=== PATIENT | male | born 1935 | race Caucasian/White ===

== ENCOUNTER 2021-02-11 12:26 | Emergency (ER) | payer OTHER, BC ==
[~2021-02-11] VITALS: Ht 180.3 cm; Wt 89.8 kg
[~2021-02-11 12:26] MED LIST: LOSA100T3 PO; NOR10 PO; PRAV20TA59 PO
[2021-02-11 12:27] VITALS: BP_SYST 130
[2021-02-11] MEDS ORDERED: OXYMETAZOLINE HCL 0.05% NASAL SPRAY NS ONE (14:00)
[2021-02-11 15:03] VITALS: BP_SYST 130
== END 2021-02-11 15:04 | disposition home or self-care (01) ==
LOC: SED 12:26
DX: R04.0 Epistaxis (principal); I10 Essential (primary) hypertension; Z79.899 Other long term (current) drug therapy
CPT/HCPCS: 99282